=== PATIENT | female | born 1990 | race Caucasian/White ===

== ENCOUNTER 2017-09-03 13:08 | Emergency (ER) | payer OTHER ==
[~2017-09-03] VITALS: Ht 160 cm; Wt 68.0 kg
[~2017-09-03 13:08] MED LIST: LORT5TAB PO; PROM25SU8 PO; Z.0.NO CURRENT MEDS
[2017-09-03 13:11] VITALS: BP 140/80; PULSE 102; RESP 18; TEMP 98.1; O2SAT 98
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
[2017-09-03 14:17] VITALS: BP 138/79; PULSE 76; RESP 18; O2SAT 100
--- NOTE | 2017-09-03 14:41 | RADRPT ---
EXAM DATE/TIME: 09/03/2017 13:42 [facility] COMPARISON: No previous studies available for comparison. INDICATIONS : Pain post fall. MEDICAL HISTORY : None. SURGICAL HISTORY : None. ENCOUNTER: Initial ACUITY: 1 day PAIN SCORE: 8/10 LOCATION: Left Ankle. FINDINGS: Two view exam was performed of the left ankle. The bony structures are in normal alignment. No evid ence of fracture, dislocation, or soft tissue swelling. No radiopaque foreign bodies are seen. Bony mineralization is normal. CONCLUSION: 1. There is no evidence of acute fracture. Delbert Birch MD on September 03, 2017 at 14:38 Board Certified Radiologist. This report was verified electronically.
== END 2017-09-03 15:04 | disposition home or self-care (01) ==
LOC: NEPD 13:08
DX: S93.402A Sprain of unspecified ligament of left ankle, initial encounter (principal); D64.9 Anemia, unspecified; X50.1XXA Overexertion from prolonged static or awkward postures, initial encounter; Z79.899 Other long term (current) drug therapy
CPT/HCPCS: 73600; 84703; 99283; E0113; L1906